=== PATIENT | male | born 2000 | race Caucasian/White ===

== ENCOUNTER 2022-04-14 04:20 | Emergency (ER) | payer OTHER ==
[~2022-04-14] VITALS: Ht 154.9 cm; Wt 58.5 kg
[2022-04-14 04:36] VITALS: BP_SYST 123
[2022-04-14] MEDS ORDERED: AZITHROMYCIN 250 MG TABLET PO ONE (05:30)
[2022-04-14] MEDS ORDERED: cefTRIAXone 1 GM in LIDOCAINE 1%, 20 ML MDV 2.1 ML IM ONE (05:30)
[2022-04-14] MEDS ORDERED: DOXY100C PO (05:37)
[2022-04-14 07:15] LABS: BILIRUBIN,URINE 2+ (NEGATIVE); BLOOD, URINE NEGATIVE (NEGATIVE); GLUCOSE,URINE NEGATIVE (NEGATIVE); KETONES,URINE TRACE (NEGATIVE); LEUKOCYTE ESTERASE ,URINE NEGATIVE (NEGATIVE); NITRITE, URINE POSITIVE (NEGATIVE); PROTEIN URINE 1+ (NEGATIVE)
[2022-04-14 07:25] LABS: CLARITY/URINE SLIGHTLY HAZY (CLEAR); COLOR,URINE BROWN (YELLOW)
[2022-04-14 07:49] LABS: BACTERIA,URINE MODERATE /HPF (None Seen); MUCUS,URINE 1+ /LPF (None Seen); RBC,URINE 0-3 /HPF (0-3); WBC,URINE 0-3 /HPF (0-3)
== END 2022-04-14 05:45 | disposition home or self-care (01) ==
LOC: SED 04:20
DX: N34.2 Other urethritis (principal); R30.0 Dysuria; N48.89 Other specified disorders of penis; F17.200 Nicotine dependence, unspecified, uncomplicated; Z79.899 Other long term (current) drug therapy
CPT/HCPCS: 99283; 81000; 87086; 36415; 96372; 87491; J0696; J2001; Q0144

== ENCOUNTER 2022-06-14 04:46 | Emergency (ER) | payer OTHER ==
[~2022-06-14] VITALS: Ht 160 cm; Wt 56.7 kg
[~2022-06-14 04:46] MED LIST: DOXY100C PO
[2022-06-14 04:52] VITALS: BP_SYST 129
--- NOTE | 2022-06-14 04:55 | NUR ---
PT HERE C/O LACERATION TO RT 4TH/RING FINGER. PT STATED THAT HE FELL WHILE HOLDING BOTTLE AND LACERATE THE RT 4TH FIGER. PMH;DENIES PT AAOX4, NO SOB NOTED. PENDING MD STALLINGS
--- NOTE | 2022-06-14 04:59 | NUR ---
PT AMBULATED WITH STEADY GAIT, REPORT GIVEN TO MILY REDMAN
[2022-06-14] MEDS ORDERED: LIDOCAINE MPF 1% 50 MG/5 ML AMP INJ ONE (05:15)
[2022-06-14] MEDS ORDERED: BACITRACIN 1 GM OINT TP ONE (05:15)
[2022-06-14] MEDS ORDERED: LIDOCAINE 1%, 20 ML MDV 20 ML ONE (05:28)
--- NOTE | 2022-06-14 06:05 | NUR ---
Dr. Jeronimo at bedside with patient for evaluation.
--- NOTE | 2022-06-14 06:36 | NUR ---
Dr. Jeronimo at bedside for lac repair.
[2022-06-14] MEDS ORDERED: LIDOCAINE 1% 10 MG/ML, 20 ML MDV INJ ONE (06:45)
[2022-06-14 07:03] VITALS: BP_SYST 129
--- NOTE | 2022-06-14 07:03 | NUR ---
Patient given written and verbal discharge instructions and verbalizes understanding. ER Dr. Jeronimo discussed with patient the results and treatment provided. Patient in stable condition. ID arm band removed. Patient educated on pain management and to follow up with PMD. Pain Scale 0. Opportunity for questions provided and answered. Medication side effect fact sheet provided.
== END 2022-06-14 07:03 | disposition home or self-care (01) ==
LOC: SED 04:46
DX: S61.214A Laceration without foreign body of right ring finger without damage to nail, initial encounter (principal); Z79.899 Other long term (current) drug therapy; W19.XXXA Unspecified fall, initial encounter; Y93.89 Activity, other specified; Y92.89 Other specified places as the place of occurrence of the external cause; Y99.8 Other external cause status
CPT/HCPCS: 99283; 73130; 12002; J2001